=== PATIENT | female | born 1960 | race Caucasian/White ===

== ENCOUNTER 2016-10-07 07:20 | Inpatient (IN) | payer OTHER ==
[~2016-10-07] VITALS: Ht 166.4 cm; Wt 77.6 kg
[2016-10-07] VITALS (13 sets, daily range): BP systolic 95–143; BP diastolic 57–87; PULSE 61–85; RESP 10–17; O2SAT 100
--- NOTE | 2016-10-07 07:10 | ED.REPORT ---
HPI-Chest Pain 40 and Over Date of Service Oct 07, 2016 ED Provider: Irvin Abernathy DO Pt is a 56 y.o. female who presents to the ED via EMS c/o substernal chest pain that radiates to her left shoulder, rated at 8/10, that woke her up from sleep. She states that she got up and fed her dogs and took 2 baby ASA hoping the pain would resolve, when it didn't she called EMS. EMS identified a STEMI en route and administered 3 Nitro, 324mg ASA, and 6 units Morphine. Upon arrival to the ED the pt states that her chest pain has improved but has not resolved. She denies associated diaphoresis and SOB. She does state that she had a recent, normal, cardiology work-up for palpitations. She denies any current health problems, she states that after losing 100lbs her DM and HTN resolved. Nursing Notes Stated Complaint: STEMI Nursing Notes Reviewed: Yes Allergies: Coded Allergies: latex (Verified Allergy, Severe, RASH, 05/10/09) Penicillins (Verified Allergy, Unknown, ANAPHYLAXIS, 05/10/09) General Time Seen by MD: 07:27 Chief Complaint Chest pain Hx Obtained From: Patient Arrived By: Ambulance Sudden in Onset?: Yes Onset Occurred: 1 - 4 hours ago Context of Onset: Sleeping Symptom Duration: Since onset Location: : Substernal Quality: Painful Radiation: : Shoulder left Severity: Current: Moderate Severity: Maximum: Pain level 8 out of 10 Recent Healthcare: No recent doctor visit, No recent hospitalization Past Medical History Past Medical History Healthy Past Surgical History Reports: Cholecystectomy Review of Systems Respiratory: Denies: Shortness of breath Cardiovascular: Reports: Chest pain Musculoskeletal: Reports: Joint pain (Left shoulder) Skin: Denies Diaphoresis Complete sys rev & neg: except as marked. Physical Exam Initial Vital Signs Vital Signs (First) Date Time Temp Pulse Resp B/P Pulse Ox O2 Delivery O2 Flow Rate FiO2 10/07/16 07:26 36.5 63 17 133/68 100 Room Air 2 Initial VS: Reviewed Head / Eyes: Atraumatic, Normocephalic Extremities: Vascular intact, Neuro intact Skin: Warm, Dry, No cyanosis Neurologic: Alert, Oriented, Nonfocal Psychiatric: Mood/affect normal, Behavior normal, Normal thought content General/Constitutional: Awake, Alert, Well appearing, Well developed, Well hydrated, Well nourished, Not toxic appearing Distress / Hydration: Positive: Distress mild Respiratory / Chest: Atraumatic, Breath sounds NL, Breath sounds = bilat, No respiratory distress Cardiovascular: Heart rate NL, Regular rhythm, Peripheral circulation NL Abdomen: Atraumatic, Soft, No distention Interpretation & Diagnostics Lab Results Interpretation Result Diagram: 10/07/16 0734 10/07/16 0734 Test 10/07/16 07:34 White Blood Count 11.3th/mm3 (3.8-10.1) Red Blood Count 4.18mil/mm3 (3.90-5.20) Hemoglobin 13.3g/dL (12.0-15.6) Hematocrit 38.8% (35.0-46.0) Mean Corpuscular Volume 92.8fL (81-100) Mean Corpuscular Hemoglobin 31.8pg (27.0-35.0) Mean Corpuscular Hemoglobin Concent 34.3% (32.0-37.0) Red Cell Distribution Width 14.0% (12.3-15.4) Platelet Count 396bil/L (150-400) Neutrophils (%) (Auto) 38.9% (40-74) Lymphocytes (%) (Auto) 46.6% (14-46) Monocytes (%) (Auto) 10.8% (4-12) Eosinophils (%) (Auto) 3.2% (0-5) Basophils (%) (Auto) 0.3% (0-3) Sodium Level 139mEq/L (134-144) Potassium Level 3.7mEq/L (3.5-5.2) Chloride Level 102mEq/L (97-108) Carbon Dioxide Level 20mmol/L (18-29) Blood Urea Nitrogen 38mg/dL (6-24) Creatinine 0.84mg/dL (0.57-1.00) Estimat Glomerular Filtration Rate 100mL/min (>59) Glucose Level 175mg/dL (60-99) Calcium Level 9.8mg/dL (8.5-10.1) Magnesium Level 2.3mg/dL (1.6-2.6) Total Bilirubin 0.3mg/dL (0.0-1.2) Aspartate Amino Transf (AST/SGOT) 22U/L (0-50) Alanine Aminotransferase (ALT/SGPT) 17U/L (0-32) Alkaline Phosphatase 76U/L (25-150) Troponin T 0.010ug/L (0.0-0.011) Total Protein 7.6g/dL (6.4-8.4) Albumin 4.3g/dL (3.4-5.0) ECG Interpretation ECG Interpretation: Anterolateral STEMI with inferior reciprocal changes Time: 07:25 Interpreted by: ED physician Normal ECG Interpretation: Normal rate (64), Normal sinus rhythm X-Ray Chest Interpretation Chest Xray Interpretation: IMPRESSION: No acute process. Dictated by: Cammy Ackerman M.D. on 10/07/2016 at 7:42 Approved by: Cammy Ackerman M.D. on 10/07/2016 at 7:42 Re-Eval/Medical Decision Med Decision/Clinical Course Patient's medical care was initiated prior to her physical arrival to the ER, the Opera [facility] was notified and activated prior to patient arrival as well as initial contact with cardiology prior to patient arrival due to concerns by EMS for ST elevation SC. Ultimately patient is diagnosed with a STEMI. Heparin bolus and nitro drip initiated in the ER. Will be taken emergently to the Opera [facility]. Time of Eval: 07:41 Re-Evaluation/Progress Note: Pt rechecked. Dr. Browne is in the room. Family is now present. Consultation : Referral / Consult Name: Durga Browne MD Call Returned at: 07:35 Polisher And Buffer: Requested laborer wood preserving plant Note: Dr. Browne is present in ED to review EKG and see pt. He states that he does not want Plavix administered. He will admit and take pt to lab[facility] plant. Discharge & Departure Primary Impression: ST elevation myocardial infarction (STEMI) of anterolateral wall Disposition: ADMITTED TO HOSPITAL Discharge Condition All VS Reviewed: Yes Condition: Stable Referrals: Gallo Hylton MD (PCP) Crit Care Except Billable Proc Time Spent: 30-74 minutes Services Performed: Patient management by me, Time spent at bedside, Reviewing test results Critical Care Notes: See MDM Scribe Attestation Portions of this note were transcribed by Raffi Tse. I, Dr. Abernathy personally performed the history, physical exam and medical decision-making; I reviewed and confirmed the accuracy of the information in the transcribed note. Signed by: Maxine Tabares, 10/07/16 and 0755. copies to: Gallo Hylton MD, Timothy S DO Oct 07, 2016 07:10 RAFFI TSE Oct 07, 2016 07:43
[2016-10-07] MEDS ORDERED: EPTIFIBATIDE IV ONE (07:21)
[2016-10-07] MEDS ORDERED: Nitroglycerin 50,000 mcg/250 mL D5W Premix IV ONE ×2 (07:28→07:31)
[2016-10-07] MEDS ORDERED: Heparin 25,000 Unit/500 mL 0.45% NS Premix IV ONE (07:28)
[2016-10-07] MEDS ORDERED: Heparin 5,000 Unit/mL Inj ONE (07:30)
[2016-10-07] MEDS ORDERED: Heparin 1,000 Units/500 mL NS Premix IV ONE (07:31)
[2016-10-07] MEDS ORDERED: Heparin 5,000 Units/500 mL NS Premix IV ONE ×3 (07:31→09:37)
[2016-10-07] MEDS ORDERED: Heparin 1,000 Unit/mL 10 mL Inj ONE ×2 (07:32→09:13)
[2016-10-07] MEDS ORDERED: fentaNYL-PF 50 mCg/mL 2 mL Inj ONE (07:32)
[2016-10-07 07:38] LABS: BASOPHILS % (AUTO) 0.3 % (0-3); EOSINOPHILS % (AUTO) 3.2 % (0-5); MONOCYTES % (AUTO) 10.8 % (4-12); Mean Corpuscular Hemoglobin 31.8 pg (27.0-35.0); Mean Corpuscular Volume 92.8 fL (81-100); NEUTROPHILS % (AUTO) 38.9 % (40-74); Platelet Count 396 bil/L (150-400)
--- NOTE | 2016-10-07 07:43 | DRSVH ---
PROCEDURE: X-RAY CHEST ONE VIEW, PORTABLE ([id number]) INDICATIONS: CP TECHNIQUE: One view of the chest was acquired. COMPARISON: None. FINDINGS: Surgical changes and devices: None. Lungs and pleura: No pleural effusions or pneumothorax. Lungs are clear. Mediastinum: Mediastinal contours appear normal. Heart size is normal. Bones and chest wall: No suspicious bony lesions. Overlying soft tissues appear unremarkable. IMPRESSION: No acute process. Dictated by: Cammy Ackerman M.D. on 10/07/2016 at 7:42 Approved by: Cammy Ackerman M.D. on 10/07/2016 at 7:42
[2016-10-07 08:20] LABS: TROPONIN T 0.01 ug/L (0.0-0.011)
[2016-10-07 08:31] LABS: Magnesium 2.3 mg/dL (1.6-2.6)
[2016-10-07] MEDS ORDERED: Eptifibatide 20,000 mCg/10 mL Inj ONE ×2 (09:18→09:22)
[2016-10-07] MEDS ORDERED: Sodium Chloride LOK Flush 10 mL Syringe IVFLUSH PRN (11:20)
[2016-10-07] MEDS ORDERED: Atropine 1 mg/10 mL (Code) Syringe IVPUSH PRN (11:20)
[2016-10-07] MEDS ORDERED: 0.9% Sodium Chloride 250 ML BOLUS IV PRN (11:20)
[2016-10-07] MEDS ORDERED: 0.9% Sodium Chloride 400 ML (4 HRS) IV ONE (11:20)
[2016-10-07] MEDS ORDERED: Eptifibatide IV Infusion 75,000 MCG in IV Premix 1 EACH IV SCH (11:25)
[2016-10-07] MEDS ORDERED: Heparin Protocol Boluses IVPUSH PRN (11:35)
[2016-10-07] MEDS ORDERED: Heparin 25K Unit/500mL 0.45 NS 25,000 UNIT in IV Premix 1 EACH IV SCH (11:35)
[2016-10-07] MEDS ORDERED: Alum-Mag Hydrox-Simeth 30 mL Suspension PO PRN (14:05)
[2016-10-07] MEDS ORDERED: Polyethylene Glycol (PEG) 17 Gm Powder PO PRN (14:05)
--- NOTE | 2016-10-07 14:15 | PCM.HPMED ---
Subjective Date of Service Oct 07, 2016 Primary Provider: Admitting Physician: Eliazar Soliz MD Primary Care Physician: Zan Ortez MD Attending Physician: Eliazar Soliz MD Chief Complaint: Stabbing chest pain History of Present Illness: Patient is a 56 year old female with a history of HTN, HLP and DM type 2. She presented to [facility] on 10/07/16 with chest pain. She reports it awakened her from sleep at approximately 0615. She describes it as stabbing and intense pain. It radiated to her left shoulder briefly. She woke up her and had him call 911. EMS arrived by 0645 and administered aspirin and nitro. This improved her chest pain. She came to [facility] and essentially went straight to label paster. Patient recalls a return of pain during the procedure. She was told this occurred because the new stent had a blood clot in it. This clot was removed. Patient reports a weight loss of 100 pounds. She did this with diet and exercise. She sees a medical management trainer four times weekly for weight training and does cardio five times weekly. She reports eating a higher protein, lower carbohydrate diet. She was able to stop all medications for diabetes, hypertension and hyperlipidemia this way. She reports being motivated to continue these positive changes to minimize the amount of medication she takes. Initial vitals show an afebrile patient with a heart rate of 63, respiratory rate of 17, blood pressure 133/68 and O2 saturation of 100% on room air. Labs were remarkable for WBC 11.3, BUN 38, blood glucose 175. Anterolateral STEMI noted on EKG and patient sent for cardiac catheterization. Admitted to ICU post -cath for continued monitoring, new medication administration and management. Review of Systems: A comprehensive review of systems was conducted with the patient and found to be negative except as above in the history of present illness. Allergies Coded Allergies: latex (Verified Allergy, Severe, RASH, 05/10/09) Penicillins (Verified Allergy, Unknown, ANAPHYLAXIS, 05/10/09) Home Medications Patient reports taking nothing PMH Hypertension Hyperlipidemia Type 2 diabetes mellitus Surgical History Ankle surgery Cholecystectomy Uterine polyp removal Family History Father - CAD requiring stent placement about 20 years ago Mother - DM2, HTN, HLP, TIA Social History Hx Alcohol Use: Yes (drank socially in her 20s) Hx Substance Use: No Hx Tobacco Use: Yes Smoking Status: Former Smoker (Smoked socially in her 20s) Living Arrangement: with Family Exam Vital Signs Vital Sign - Last Date Time Temp Pulse Resp B/P Pulse Ox O2 Delivery O2 Flow Rate FiO2 10/07/16 12:30 70 16 95/57 10/07/16 11:20 37.0 100 Nasal Cannula 4.00 Exam Alert and oriented x3, no acute distress, laying in CCU bed Head atraumatic, normocephalic PERRLA, EOMI, sclera anicteric Mucus membranes moist, no oral thrush observed No cervical lymphadenopathy, neck supple, nontender No JVD noted Cardiac tones regular rate and rhythm with no murmur appreciated Lungs clear to auscultation bilaterally with adequate respiratory effort No abdominal tenderness, non-distended, normoactive bowel tones, soft Savage present Radial pulses normal and equivalent bilaterally, dorsalis pedis pulses normal and equivalent bilaterally No cyanosis, clubbing or edema Femoral sheath still in place in the right groin with blood oozing around it Cranial nerves appear to be fully intact, normal speech, patient can move upper and lower limbs grossly Lab and Diagnostics Result Diagram: 10/07/16 1255 10/07/16 0734 X-Rays, CTs and MRIs PROCEDURE: X-RAY CHEST ONE VIEW, PORTABLE IMPRESSION: No acute process. Dictated by: Cammy Ackerman M.D. on 10/07/2016 at 7:42 Assessment & Plan Patient is a 56 year old female with a history of HTN, HLP and DM type 2. She presented to [facility] on 10/07/16 with chest pain. Found to have anterolateral STEMI. Underwent cardiac catheterization. Admitted for continued monitoring and management. 1. Anterolateral STEMI, acute, present on admission. - Dr. Browne of cardiology performed PCI with stenting to the LAD. We appreciate his continued consultation. - Continue heparin drip per the cardiac protocol at this time. - Continue integrilin IV at this time per Dr. Browne's instructions - continue to 18 hours. - Begin metoprolol tartrate 12.5 mg BID. - Begin atorvastatin 80 mg HS. - Begin baby aspirin daily. - Begin prasugrel 10 mg daily. - SL nitro available PRN chest pain. - IV morphine available PRN chest pain. - Patient to remain NPO and on bedrest in case there is a need for additional visit to label paster. Femoral sheath remains in place at this time. - Echo ordered and pending. - Continue IV NS 100 ml/hr at this time. 2. History of hypertension, presume stable. - Patient on no current home medications as she lost 100 lbs. with diet and exercise. - Continue to monitor. 3. History of hyperlipidemia, presume stable. - Patient on no current home medications as she lost 100 lbs. with diet and exercise. 4. Type 2 diabetes mellitus, presume stable. - Patient on no current home medications as she lost 100 lbs. with diet and exercise. - Will check A1c during this admission. - Antiemetic available PRN. - Antacid available PRN. - Bowel regimen available PRN. - Tylenol available PRN mild pain, fever. Patient admitted under inpatient status with expected length of stay greater than 2 midnights for severity of present symptoms, complexities of treatment plan and risk for adverse events. PCP Zan Ortez MD VTE Prophylaxis: SCDs, Other (Heparin drip) Resuscitation Status: CPR: Attempt Resuscitation Attending Statement The patient was seen and examined together with Dr. Brar on 10/07/2016 and I agree with the history, exam and plan as outlined in the note above. . copies to: Zan Ortez MD, Jennifer E DO Oct 07, 2016 14:15 Eliazar Soliz MD Oct 07, 2016 17:32
[2016-10-07] MEDS ORDERED: DOPamine 800 mg/250 mL D5W Premix IV ONE (14:42)
[2016-10-07] MEDS: Ondansetron 2 mg/mL 2 mL Inj IVPUSH PRN ×2 (14:50→15:58)
[2016-10-07 14:57] LABS: TROPONIN T 5.38 ug/L (0.0-0.011)
[2016-10-07] MEDS ORDERED: Protamine Sulfate 10 mg/mL 5 mL Inj IVPUSH ONE (15:00)
--- NOTE | 2016-10-07 15:54 | CS94 ---
[address] [address] DIAGNOSTIC CARDIAC CATHETERIZATION PATIENT: HAKAN GARCIA : 1960 MR#: [id number] ADMIT: 10/07/2016 JOB ID: [id number] SERVICE DATE: 10/07/2016 PROCEDURE NOTE--CARDIAC CATHETERIZATION LABORATORY: DATE OF PROCEDURE: Friday, October 07, 2016. CONTROL TOWER RADIO OPERATOR: Durga Browne MD. PROCEDURES: 1. Coronary angiogram--emergent. 2. Left heart catheterization (LHC): Pressure measurement. 3. Percutaneous coronary intervention: a. Drug-eluting stent of the mid left anterior descending--Xience 2.5 x 33 mm; and Xience 2.75 x 12 mm drug-eluting stents. b. IVUS--adjunctive intravascular ultrasound. CLINICAL DETAILS: This 56-year-old woman presents to the emergency department by EMS 1-2 hours after the onset of severe retrosternal chest discomfort. ECG shows anterior ST elevation with reciprocal ST depression. Underlying coronary risk factors include strong family history of premature coronary disease; and she is said to have had hypertension, hyperlipidemia, and diabetes that were treated prior to voluntary weight loss of 100 pounds. PROCEDURAL DETAILS: I evaluated her emergently in the emergency department immediately after her arrival. I discussed the findings, impressions and management considerations, including the recommendation to proceed emergently to coronary angiogram for definitive diagnosis and to guide Treatment options including medical therapy, anticipated PCI; or coronary bypass surgery, if needed. We discussed the procedure including possible risks and complications, including with her and her . We discussed bleeding, infection, and blood clot, as well as injury to nerve, artery, vein or kidney; also arrhythmia, drug reaction; or others. We discussed treatment as needed including surgery, pacemaker, transfusion. We discussed more serious complications that are possible including stroke, heart attack, cardiac arrest, and emergency surgery including transfer for coronary bypass surgery. After questions and discussion she signed informed consent to proceed. In the emergency department, she was treated with ASA 324 mg chewed; and heparin IV bolus; and heparin IV infusion. She was brought to the catheterization laboratory where she was prepped sterilely and draped for the procedure. CORONARY ANGIOGRAM: Arterial access was obtained without difficulty in the right common femoral artery using fluoroscopic localization over the femoral head and modified Seldinger technique to insert a 10 cm, [place] side-arm sheath. A long 0.035-inch, J-tipped guidewire was used to advance and exchange catheters. For coronary angiography, the right coronary artery was 1st imaged using a [place] JR-4 diagnostic catheter. Then, the left coronary artery was imaged using a [place] JL-4 catheter. LEFT HEART CATHETERIZATION: At the end of the procedure, a 6[place] pigtail catheter was advanced across the aortic valve into the left ventricle. Pressures were measured. PCI OF MID LAD: The initial diagnostic angiograms were reviewed; the decision made to proceed with emergent revascularization of the apparent culprit subtotally occluded mid LAD lesion (PARAG-2 flow). The treatment site includes also a long, diffuse segment of diseased vessel crossing a small (1 mm) diagonal branch with an 80% tubular ostial and proximal narrowing. The [place], JL-[address] guide catheter already in [address] was used for the intervention. Procedural anticoagulation was obtained with bolus IV heparin to achieve therapeutic ACT. Dual antiplatelet therapy was begun with a loading dose of prasugrel 60 mg p.o., aliquots of NTG IC were used during the procedure. The lesion was crossed with a BMW wire--0.014 inches x 190 cm--which was placed distally in the LAD. PREDILATATION: The lesion was predilated with a Trek balloon--2.5 x 15 mm--inflated to 6 atmospheres. The lesion and flow in the artery was improved. STENT: Next, a LORENE (drug-eluting stent) Xience Alpine--2.5 x 33 mm--was inserted across the lesion and deployed at 18 atmospheres. Next, a second stent, Xience Alpine--2.75 x 12 mm, was deployed proximally overlapping the first stent to cover the entire lesion from normal to normal and deployed at 16 atmospheres. POSTDILATATION: The stented segment was postdilated with a noncompliant Trek NC balloon--2.75 x 15 mm inflated twice within the stented segment to a maximum of 20 atmospheres. There was an excellent angiographic result with no residual lesion, PARAG-3 flow, and no evident angiographic complication. The small diseased diagonal jailed by the stent did not deteriorate. The patient had become pain free. Left heart catheterization was performed. After left heart catheterization, the patient noticed recurrent chest discomfort. Angiograph: The followup angiographic pictures were obtained using the [place], JL-4 guide catheter. The small diagonal branch had deteriorated and closed; and there was a filling defect consistent with thrombus within the stent in the mid LAD. There was PARAG-3 flow in the LAD; and the chest discomfort was attributed to the closed diagonal branch. At this point, Integrilin was initiated with a double bolus protocol and infusion. The first bolus was given intracoronary through the guide catheter. The diagonal branch opened and resumed PARAG-3 flow. Her chest pain resolved. A BMW wire was reinserted across the stent; and a Trek balloon--2.75 x 15 mm--was inserted across the site of a filling defect; and inflated to 4 atmospheres twice for 1 minute each time. Thereafter, the completion angiograms showed resolution of the thrombus with no residual lesion, no evident angiographic complication, and PARAG-3 flow in the LAD, as well as in the small diagonal branch. IVUS: Intravascular ultrasound was performed using the [place] 40 megahertz [place] catheter inserted distal to the stent and recorded on pullback. The stent appeared to be intact, well apposed and well expanded with diameter 2.5-3 mm and area of 4.4-4.9 squared mm. There was no other evident abnormality noted by IVUS. Completion angiograms showed an excellent angiographic result with no residual lesion; PARAG-3 flow in the LAD as well as in the diagonal; and no evident angiographic complication. The patient was chest pain free and ST depression that had been noted resolved fully. PROCEDURE WITHOUT DIFFICULTY. Patient tolerated procedure well. No complication. A side-arm sheath angiogram showed a high bifurcation and arterial access over the femoral head but at the bifurcation of the common femoral artery. Arterial hemostasis was deferred and the sheath was sutured in place to be maintained to arterial pressure transducer and flushed until removed after plans for continuing heparin infusion. The patient was chest pain free and stable and was transferred from the catheterization laboratory to the CCU unit for ongoing care including by the primary hospitalist service. I discussed the findings, impressions and management considerations with the patient; and with her and parents who arrived; with Cardiology; and with the hospitalist team. FINDINGS: 1. LMCA: Intact. The left main coronary artery is short and has no lesions. 2. LAD: 99% tubular subtotal mid LAD lesion with PARAG 2 flow. The LAD is a moderate to large size transapical vessel. The culprit lesion is within a long segment of severe diffuse disease extending from past the first septal fruit sprayer and crossing the small (1.0 mm) 1st diagonal vessel. The diagonal has an 80% focal ostial and proximal lesion. 3. LCX: Intact. The left circumflex coronary artery distribution includes one moderate-sized distal posterolateral branch; and there are no angiographic obstructive lesions. 4. RCA: Dominant. Intact. The right coronary artery has a downward-going and somewhat anterior takeoff. There are no angiographic obstructive lesions. The PDA and RPL branches are small to medium size. 5. LHC: LVED 18 mmHg; and pullback measurement was obscured by PVCs. CONCLUSIONS: 1. PCI--LORENE of diffuse mid LAD lesion including a Xience 2.5 x 33 mm; and Xience 2.75 x 12 mm stents; post dilated to 2.75 mm. 2. ACS (acute coronary syndrome)--acute anterior myocardial infarction due to culprit subtotal mid LAD lesion with PARAG 2 flow. 3. Coronary artery disease (CAD)--single-vessel disease of mid LAD and small diagonal. RECOMMENDATIONS: 1. ECASA--indefinitely. 2. Prasugrel--plan on year if well tolerated, including ongoing Cardiology followup. I discussed with the patient, her and family regarding the critical importance of mandatory dual antiplatelet therapy and not to stop Plavix for any reason without immediate Cardiology consultation. 3. Echocardiogram. 4. OMT--guideline-directed optimal medical therapy for coronary disease including aspirin, prasugrel, statin, beta-nate and consideration of KALPESH inhibitor; as well as for underlying CAD risk factors. 5. Hydration and monitoring of urine output and hydration and monitoring to ensure good urine output after contrast. 6. Plan to maintain heparin drip and Integrilin prior to removing sheath.
[2016-10-07] MEDS: 0.9% Sodium Chloride 1,000 ML IV SCH (15:58)
--- NOTE | 2016-10-07 16:27 | CONS ---
[address] [address] CONSULTATION REPORT PATIENT: HAKAN GARCIA : 1960 MR# : [id number] ADMIT: 10/07/2016 JOB ID: [id number] CARDIOLOGY CONSULTATION NOTE--INITIAL CRITICAL CARE EVALUATION (EMERGENCY DEPARTMENT): DATE OF EVALUATION: Friday, October 07, 2016. CONSULTING PHYSICIAN: Cardiology--Durga Browne MD. PROBLEMS: 1. ACUTE CORONARY SYNDROME (ACS): a. Chest pain--Awakened by 1st ever episode of severe chest discomfort; and presenting with ischemic time 1-2 hours. b. STEMI--ECG shows anterior ST elevation with confirmatory reciprocal inferior ST depression. CAD Risk Factors: a. History of diabetes--not recently treated after 100-pound weight loss. b. Hypertension--history of hypertension; not recently treated after weight loss. c. Hyperlipidemia--history of hyperlipidemia; not recently treated after prior weight loss. d. Cigarettes--Nonsmoker. e. Family history--Strong family history of premature coronary disease. OTHER PROBLEMS: 1. Palpitations--fleeting palpitations; and history of orthostatic dizziness including one episode of syncope; and recently completed Zio patch monitor. 2. Obesity--current weight 160 pounds; after 100 pound voluntary weight loss. CHIEF COMPLAINT: 1. Chest pain. 2. STEMI. HISTORY OF PRESENT ILLNESS: PRESENTATION: I came emergently to see this 56-year-old woman immediately after she was admitted by EMS transport to the Emergency Department. She was awakened by severe retrosternal chest discomfort--she describes sharp pain radiating to the back with intensity eight on a scale to 10. Her chest discomfort has moderated somewhat after MSO4 and NTG in the emergency department. She has ongoing moderate chest discomfort--intensity 4-5. She is otherwise clinically stable including hemodynamically and rhythm. During EMS transport from home and in the emergency department, she had already received ASA 324 mg chewed; and heparin loading bolus IV; and heparin IV infusion. CARDIAC HISTORY: The patient tells me she has not had prior known heart disease with the exception she was told of a murmur in childhood. She had also just recently completed a Zio patch ambulatory telemetry because of fleeting palpitations, that are asymptomatic otherwise. She also has significant orthostatic dizziness when she stands up. Her said she had one episode of syncope in the orthostatic setting. Otherwise she is vigorously active, including working with a animal trainer on vigorous cardio workouts. She has had no premonitory symptoms; no effort limitation; and no effort-related symptoms. She has had no prior anginal symptoms and no heart failure symptoms, including no chronic dyspnea, nocturnal dyspnea, or edema. Regarding other possible underlying vascular disease, she has no history of CVA or current symptoms of TIA. No claudication. Regarding possible dual antiplatelet therapy, she reports no current bleeding symptoms, no anticipated upcoming surgery; and she says she is reliable to take mandatory medicines if needed. ALLERGIES: 1. PENICILLIN. 2. LATEX. I elicit no history of allergy to medical contrast, seafood, fish, iodine or shellfish. MEDICATIONS: 1. ASA 81 mg daily. 2. She takes no other medicines regularly. PAST MEDICAL HISTORY: Cholecystectomy (open laparotomy). She was told of a small abdominal aortic aneurysm after an ultrasound. REVIEW OF SYSTEMS: I questioned her and her in the emergent setting regarding a 13-point review of systems which is unremarkable, noncontributory, and negative except as noted including: No constitutional symptoms. No history of thyroid disorder. No history of pulmonary disorder except she notes occasional seasonal ("grass") allergies with some wheezing; but never severe episodes; except treated by albuterol intermittently; and not currently active. No history of GI disorder including indigestion, ulcer, hepatitis, jaundice. PERSONAL AND SOCIAL HISTORY: Cigarettes--nonsmoker except limited smoking in the remote past when she was young. Alcohol--The reports she uses no alcohol. Work--She is not working. Family--She lives with her and takes care of two dogs; and her parents are present later. FAMILY HISTORY: There is a strong family history of premature coronary disease in the 6th decade including her father, aunt, and others. EXAMINATION: General appearance: Pleasant woman who has a moderate chest discomfort and is worried. Vital signs: Blood pressure 119/87, with heart rate 72, regular in sinus rhythm on telemetry. Respiratory rate 18 and unlabored. SpO2 100% on nasal cannula. Afebrile. Weight approximately 160 pounds. Neurologic and mental status: No overt focal neurologic defect noted. She is alert, oriented, appropriate and conversant. HEENT : PERRL. Conjunctivae pink. Sclerae not icteric. Mouth and mucous membranes intact. Neck: Carotid upstroke intact bilaterally without bruit. Jugular venous pressure unremarkable, examined supine. No palpable thyromegaly. No palpable cervical lymphadenopathy. Lungs: Clear to auscultation bilaterally examined supine. Cardiac: No chest wall tenderness. Cardiac examination notable for distant heart sounds. Regular rhythm. S4 gallop and there is no loud murmur heard. Abdomen: Somewhat obese, but otherwise unremarkable examination without tenderness, mass, hepatosplenomegaly or bruit of abdominal aortic aneurysm. Note vertical midline scar. Extremities: No edema. Pedal pulses are intact bilaterally at the posterior tibial; and faintly at the right dorsalis pedis. DIAGNOSTIC STUDIES: ECG: I reviewed the multiple pre-hospital field tracings from EMS and the initial ED ECG which shows marked anterior ST elevation with confirmatory reciprocal inferior ST depression. There are only tiny R waves V1 through V3. CXR: Unremarkable. LABORATORY: CBC includes WBC 11,300, with hemoglobin 13.3, hematocrit 38.8, normal indices, and platelet count 396,000. Chemistry includes potassium 3.7, BUN 38, creatinine 0.84. Estimated GFR 100 with glucose 175. Magnesium 2.3 and unremarkable LFT. Initial troponin not elevated, less than 0.010. ASSESSMENT: I discussed my findings, impressions, and management considerations with the patient and her ; as well as with the emergency department staff; and later with the admitting Hospitalist Service includin. Acute coronary syndrome with STEMI: She was awakened by chest pain which is ongoing. ECG shows clear acute anterior myocardial infarction. She is clinically stable otherwise. I discussed the recommendation to proceed to emergent coronary angiogram for definitive diagnosis and to guide management options including medical therapy, anticipated PCI (percutaneous coronary intervention); and bypass surgery if needed. We discussed the procedure including possible risks and complications. We discussed stents including possible early or late stent failure; and possible need for further interventional procedures or bypass. We discussed the critical importance of mandatory dual antiplatelet therapy. RECOMMENDATIONS: 1. Cardiac catheterization and anticipated PCI--emergent. 2. Admit to the Hospitalist service. 3. Echocardiogram. 4. OMT--Guideline directed optimal medical therapy for coronary disease and for underlying CAD Risk factors. MIKEL
--- NOTE | 2016-10-07 18:00 | NUR ---
Admit / Hematoma/Bleeding: Patient was admitted to CCU room 2019. Pt A&O X3.Tele: Sinus 70s PAC reports 08/24 CP. aware. R groin site with sheath and ART line intact, old drainage was cleaned up for close monitoring of new bleeding. Bio occlusive intact. Dorsalis pedis pulses palpable. Pulses marked. Bilateral AC PIV infusing Nitro 5mcg/min, Integrilin 13mL/hr, Heparin 1000u/hr and NS 100ml/hr. Pt was assessed by Design Director and Hospitalist shortly after admit. Pt was assessed at 1230 and at about 1235 pt requested an ice chip. Bed was put in reverse trendelenburg and pt stated she was feeling light headed. Bed was put back flat and site R groin site was assessed. This RN noted large hematoma at groin site. music education adjunct professor, Design Director and Resident were all notified. Nitro, Integrilin and heparin gtts all stopped. STAT labs ordered. Pressure was held at R groin hematoma continuously for about 4hours. ECHO completed. Ultrasound was ordered to r/o retroperitoneal bleed. Design Director present during both ECHO and US. Addendum: 10/07/16 at 1817 by ELYSSA LOMELI RN Sheath/ART line removed by labor and delivery nurse RN and held pressure for about 25-30 mins. Epworth dressing and bioclusive dressing C/D/I. Dorsalis pedis pulses marked/palpable. Large amount of bruising a R groin noted and hematoma is outlined in black pen. Will continue to monitor for bleeding/hematoma.
[2016-10-07] MEDS ORDERED: [UNRECOGNIZED DRUG - OTHER] IV SCH (20:05)
[2016-10-07] MEDS ORDERED: DOPAMINE IV SCH (20:05)
[2016-10-07] MEDS ORDERED: DOPamine 800 mg/250 mL D5W 800,000 MCG in IV Premix 1 EACH IV SCH (20:25)
--- NOTE | 2016-10-07 21:30 | DRSVH ---
[facility] [address] [place] [address] Echocardiogram Report Name: HAKAN GARCIA MStudy Date: 10/07/2016 Height: 65 in Hospital Exam Location: [facility] Weight: 172 lb Gender: Female BSA: 1.9 m2 : 1960 Age: 56 yrs BP: 138/70 mm Hg Reason For Study: CAD Performed By: Crissy Harry Referring Physician: RAMSEY SNEED Interpretation Summary Normal sinus rhythm. Normal LV size; EF is 35-40% with focal wall motion abnormalities in LAD distribution as outlined below. No significant valvular abnormalities. Mild LA enlargement; otherwise normal chamber sizes. No prior study available for comparison. Procedure: A two-dimensional transthoracic echocardiogram with color flow and Doppler was performed. The study quality was technically adequate. There is no prior echocardiogram noted for this patient. The heart rate ranged between 49-59 bpm during the study. Left Ventricle: The left ventricle is grossly normal size. There is normal left ventricular wall thickness. The ejection fraction is estimated to be 35- 40%. There is distal septal, mid-anteroseptal, mid-anterior, distal anterior akinesis. There is basal anteroseptal hypokinesis; mid-inferoseptal hypokinesis, distal inferior, apical hypokinesis. All other segments show normal wall motion. Right Ventricle: The right ventricle is normal in size and function. Atria: The left atrium is mildly dilated. Right atrial size is normal. Mitral Valve: The mitral valve leaflets appear mildly thickened, but open well. There is no mitral regurgitation noted. Aortic Valve: The aortic valve opens well. The aortic valve is mildly calcified. No aortic regurgitation is present. Tricuspid Valve: The tricuspid valve leaflets are thin and pliable. There is trace tricuspid regurgitation. The right ventricular systolic pressure is estimated at 28 mmHg assuming a right atrial pressure of 3 mm Hg. Pulmonic Valve: The pulmonic valve is not well visualized. Great Vessels: The aortic root is normal size. The IVC is of normal diameter and collapses greater than 50% with a sniff. This suggests a low right atrial pressure of 3 mm Hg. Pericardium/ Pleura There is no pericardial effusion. There is no pleural effusion. MMode/2D Measurements & Calculations LA dimension: 3.9 cm RA long axis: 4.6 cm Ao root diam: 3.0 cm Aortic Jxn: 2.4 cm LA A2 area: 17.5 cm RA area: 11.3 cm LA A4 area: 20.8 cm RA vol: 23.4 ml LA length (vol): 4.8 cm RA : 12.6 ml/m2 LA vol: 64.9 ml LA vol index: 35.0 ml/m IVC diam: 1.8 cm Doppler Measurements & Calculations MV E max dagoberto MV E/A: 0.95 TR max dagoberto MV dec time : 87.5 cm/sec Med Peak E' Dagoberto : 250.1 cm/sec : 0.24 sec MV A max dagoberto TR max PG : 92.3 cm/sec E/E' med: 12.4 : 25.0 mmHg MV P1/2t: 70.5 msec Lat Peak E' Dagoberto E/E' lat: 7.2 E/e' average: 9.8 MV P1/2t max dagoberto MVA(P1/2t): 3.1 cm2 Reading Physician:09:29 PM
[2016-10-08] VITALS (9 sets, daily range): BP systolic 95–132; BP diastolic 49–70; PULSE 58–81; RESP 13–18; O2SAT 90–100
[2016-10-08] MEDS: 0.9% Sodium Chloride 1,000 ML IV SCH ×3 (02:30→17:51)
[2016-10-08 03:42] LABS: BASOPHILS % (AUTO) 0.2 % (0-3); EOSINOPHILS % (AUTO) 0.6 % (0-5); MONOCYTES % (AUTO) 11.5 % (4-12); Mean Corpuscular Hemoglobin 31.2 pg (27.0-35.0); Mean Corpuscular Volume 95.3 fL (81-100); NEUTROPHILS % (AUTO) 67.6 % (40-74); Platelet Count 302 bil/L (150-400)
[2016-10-08 04:55] LABS: TROPONIN T 6.2 ug/L (0.0-0.011)
[2016-10-08] MEDS ORDERED: FLUT9.9S16 NS (08:02)
--- NOTE | 2016-10-08 08:59 | DRSVH ---
PROCEDURE: X-RAY CHEST ONE VIEW, PORTABLE ([id number]) INDICATIONS: POST MAIL DISTRIBUTION CLERK TECHNIQUE: One view of the chest was acquired. COMPARISON: [facility], CR, XR CHEST 1VW (PORTABLE), 10/07/2016, 7:17. FINDINGS: Surgical changes and devices: Cholecystectomy clips. Lungs and pleura: No pleural effusions or pneumothorax. Lungs are clear. Mediastinum: Mediastinal contours appear normal. Heart size is normal. Bones and chest wall: No suspicious bony lesions. Overlying soft tissues appear unremarkable. IMPRESSION: No acute cardiopulmonary disease. Dictated by: Ciro Noriega [facility] Interpreted: Marissa Tellez MD on 10/08/2016 at 8:58 Transcribed by: RACQUEL on 10/08/2016 at 8:59 Approved by: Marissa Tellez MD, PhD on 10/08/2016 at 18:05
--- NOTE | 2016-10-08 11:57 | PROG NOTE ---
[address] [address] PROGRESS NOTE PATIENT: HAKAN GARCIA : 1960 MR#: [id number] ADMIT: 10/07/2016 JOB ID: [id number] DATE: 10/07/2016 SUBJECTIVE: The patient is a 56-year-old lady with a history of diabetes, hypertension, hypercholesterolemia, and prior smoking. She used to smoke in her 20s. She lost 100 pounds intentionally. The patient was in her usual state of health until yesterday morning at 6:15 a.m. when she woke up with severe chest discomfort. She presented to [facility] with acute anterolateral myocardial infarction. She underwent emergent angioplasty and stent placement by Dr. Browne with two drug-eluting stents to the left anterior descending artery. The patient reports feeling a whole lot better than yesterday. She denies chest discomfort, shortness of breath, orthopnea, PND, palpitation. PHYSICAL EXAMINATION: Temperature is 37.0. Blood pressure is 101/56. Pulse 60. Body weight is 78 kg. Head and face have normal configuration. nonicteric sclerae. Moist mucosa. Neck supple. No jugular venous distention or carotid bruits. Chest: Normal expansion. Lungs are clear to auscultation. Heart: The first and second heart sound normal. Grade 2/6 systolic ejection murmur at the left upper sternal border. Abdomen: Soft, nontender. Extremities: No clubbing, cyanosis, or edema. Large right groin hematoma. Neurologic: Grossly intact. DIAGNOSTIC DATA: Echocardiogram on October 07, 2016 showed normal left ventricular size with ejection fraction 35% to 40%. No significant valvular abnormality. Mildly dilated left atrium. Blood tests show hemoglobin 10.0, WBC 12.4, platelet 302. Sodium 145, potassium 4.2, chloride 112, bicarb 19, BUN 20, creatinine 0.74, glucose 113, cholesterol 139, triglycerides 60. HDL 59, LDL 68. CK peaked at 2,175. Troponin T peaked at 6.2. IMPRESSION: 1. Acute large anterolateral myocardial infarction. 2. Status post stent to the left anterior descending artery with two drug-eluting stents. 3. Ischemic cardiomyopathy with ejection fraction 35%-40%. 4. History of diabetes. 5. History of hypertension. 6. History of hypercholesterolemia. 7. Large right groin hematoma. PLAN: I will change her antiplatelet agent from prasugrel to clopidogrel, as this is more affordable to the patient as an outpatient. Beta-nate will be changed from metoprolol to carvedilol due to poor left ventricular ejection fraction. I will start her on a small dose of KALPESH inhibitor. MTDD
--- NOTE | 2016-10-08 12:02 | NUR ---
Pt changed to PCC status this am at approx 0800 Pt denies any CP today, she has been SR/SB this am with PVC's occ. She is in the shower at this time (order received OK to be off tele for shower). I will re check right groin site after. She has a large bruise present at right groin site, with no obvious active bleeding or hematoma present. Pt spoke with Dr. Elva real plan of care and her cardiac event. She was a little worried and upset afterwards and I have explained everything again for her and given her education booklets on heart attack, angioplasy/stents and angina. I also have given her care notes on plavix, captopril and coreg. Her has been in to visit and offers good support. Pt was advance to full heart healthy diet and IV has been saline locked. Savage catheter was removed this am. Pt complains at this time of some "fluttering" in her chest, and she was having some PVC's at the time.
--- NOTE | 2016-10-08 16:51 | PCM.PNMED ---
Subjective Date of Service Oct 08, 2016 Subjective overnight: Patient developed right inguinal hematoma at the cardiac catheterization site which required pressure to be held for approximately 4 hours for resolution. No acute events otherwise noted Today: Patient denies any chest pain or shortness of breath at this point. She continues to note pain in the right from oral catheter site. She states she has been able to urinate without issue. She feels like she will be ready to go home tomorrow given the improvement in her health today. Exam Vital Signs Vital Sign - Last Date Time Temp Pulse Resp B/P Pulse Ox O2 Delivery O2 Flow Rate FiO2 10/08/16 04:30 37.0 60 18 101/56 100 Nasal Cannula 2.00 Intake and Output 10/07/16 10/07/16 10/08/16 Cumulative From/Thru 15:00 23:00 07:00 10/07/16 07:26 - 10/08/16 05:59 Intake Total 1825 ml 1278 ml 3103 ml Output Total 1850 ml 1528 ml 3378 ml Balance -25 ml -250 ml -275 ml Intake Oral 50 ml 200 ml 250 ml IV Total 1775 ml 1078 ml 2853 ml Output Urine Total 1850 ml 1528 ml 3378 ml # Bowel Movements 0 0 Exam Gen.: Alert and oriented x3, no acute distress, laying in CCU bed Eyes: PERRLA, EOMI, sclera anicteric Head: atraumatic, normocephalic, Mucus membranes moist without central cyanosis , no oral thrush observed Neck: No cervical lymphadenopathy, neck supple, nontender, No JVD noted Cardiovascular: regular rate and rhythm with no murmur rubs or gallops appreciated Lungs: clear to auscultation bilaterally with adequate respiratory effort, no wheezing rales or rhonchi Abdomen: Normoactive bowel sounds, No abdominal tenderness to palpation, non- distended, soft : No Savage catheter in place Extremities: Notable right inguinal hematoma with pain on palpation. Radial pulses and dorsalis pedis pulses normal and equivalent bilaterally, No cyanosis , clubbing or edema Neuro: Cranial nerves appear to be fully intact, normal speech, patient can move upper and lower limbs grossly Psych: Normal mood and affect Lab and Diagnostics Result Diagram: 10/08/1621210/08/16212 X-Rays, CTs and MRIs PROCEDURE: X-RAY CHEST ONE VIEW, PORTABLE IMPRESSION: No acute process. Dictated by: Cammy Ackerman M.D. on 10/07/2016 at 7:42 Cardiac Echo Impressions Echocardiogram Report Interpretation Summary Normal sinus rhythm. Normal LV size; EF is 35-40% with focal wall motion abnormalities in LAD distribution as outlined below. No significant valvular abnormalities. Mild LA enlargement; otherwise normal chamber sizes. No prior study available for comparison. Reading Physician:09: 29 PM Assessment & Plan Patient is a 56 year old female with a history of HTN, HLP and DM type 2. She presented to [facility] on 10/07/16 with chest pain. Found to have anterolateral STEMI. Underwent cardiac catheterization. Admitted for continued monitoring and management. 1. Anterolateral ST elevation myocardial infarction, acute, present on admission. - Dr. Browne of cardiology performed PCI with stenting 2 to the LAD. We appreciate his continued consultation. - Discontinue heparin drip per the cardiac protocol at this time. - Discontinue integrilin IV at this time per Dr. Browne's instructions -Discontinue metoprolol tartrate 12.5 mg BID, begin carvedilol 3.125 mg twice a day - Begin atorvastatin 80 mg HS. - Begin baby aspirin daily. - Discontinue prasugrel 10 mg daily, begin clopidogrel 75 mg daily - SL nitro available PRN chest pain. - IV morphine available PRN chest pain. - Echo ordered showed EF of 35-40% with hypokinesis in the distribution of the LAD consistent with ischemic cardiomyopathy - discontinue IV NS 100 ml/hr as the patient is eating and drinking - Referral to cardiac rehabilitation 2. Ischemic cardiomyopathy, present on admission, acute - Echo shows EF of 35-40% - Begin carvedilol as above in 1 - Begin low dose captopril - Consider referral to CHF clinic 3. History of hypertension, presume stable. - Patient on no previous home medications as she lost 100 lbs. with diet and exercise. - Begin medications described in #2 above including carvedilol and captopril - Continue to monitor. 4. History of hyperlipidemia, presume stable. - Patient on no current home medications as she lost 100 lbs. with diet and exercise. - Atorvastatin 80 mg daily 5. Type 2 diabetes mellitus, presume stable. - Patient on no current home medications as she lost 100 lbs. with diet and exercise. - A1c ordered still pending - Antiemetic available PRN. - Antacid available PRN. - Bowel regimen available PRN. - Tylenol available PRN mild pain, fever. Disposition: Patient will likely be discharged tomorrow for cardiac rehabilitation and possible CHF clinic. No barriers to discharge at this time PCP Zan Ortez MD Pain Evaluation: Adequate Pain Control GI Prophylaxis: Not indicated VTE Prophylaxis: Sub-Q Heparin (Unfractionated), SCDs Resuscitation Status: CPR: Attempt Resuscitation Attending Statement The patient was seen and examined together with Dr. Vang on 10/08/2016 and I agree with the history, exam and plan as outlined in the note above. . Cristi Vang DO Oct 08, 2016 06:50 Eliazar Soliz MD Oct 12, 2016 08:43
--- NOTE | 2016-10-08 17:24 | NUR ---
Pt transferred to 2026 this evening Pt moved rooms, continues to be PCC status. is with pt at this time. Pt VS continue to be stable, and she denies any chest discomfort. She does say she feels "flutters in her chest" at times, and these seem to correlate with some infrequent PVC's. Pt has taken diet and fluids well today. She remains in SR/SB
--- NOTE | 2016-10-08 18:09 | NUR ---
Assumed Care Assumed care of her about 1730 after she transferred from CCU 2019 to [facility] 2026. Took report from Jennifer SARMIENTO in CCU. Care continues.
[2016-10-08] MEDS: Heparin 5,000 Unit/mL Inj SUBQ SCH (23:46)
[2016-10-09] VITALS (10 sets, daily range): BP systolic 89–122; BP diastolic 56–70; PULSE 62–78; RESP 16–18; O2SAT 97–100
--- NOTE | 2016-10-09 04:50 | NUR ---
Pain/tele/activity Denies chest pain. C/o right groin pain with activity, but has declined intervention for this. Right groin continues with large bruised area, but no oozing or increased bruising. Up to bathroom with steady gait. At one point, c/o nausea and some lightheadedness when getting up, which she attributed to HS meds, although her BP was normal at this time. Hoping for discharge later today.
[2016-10-09 06:21] LABS: BASOPHILS % (AUTO) 0.3 % (0-3); EOSINOPHILS % (AUTO) 2.2 % (0-5); MONOCYTES % (AUTO) 11.4 % (4-12); Mean Corpuscular Hemoglobin 31.7 pg (27.0-35.0); Mean Corpuscular Volume 95.6 fL (81-100); NEUTROPHILS % (AUTO) 62.6 % (40-74); Platelet Count 292 bil/L (150-400)
[2016-10-09 06:46] LABS: Magnesium 1.9 mg/dL (1.6-2.6); Phosphorus 2.9 mg/dL (2.5-4.9)
[2016-10-09] MEDS: Heparin 5,000 Unit/mL Inj SUBQ SCH ×2 (08:44→16:25)
--- NOTE | 2016-10-09 11:06 | NUR ---
Chest pain Patient stated chest pressure 3/10 substernal. Administered 2mg morphine. Vitals taken: P 72, BP 118/68, O2 100% RA. Stat EKG ordered and given to MD. Cardiology notified and came to evaluate patient. Chest pain decreased to 0/10.
--- NOTE | 2016-10-09 11:20 | NUR ---
Social Work: Screening Data: Pt is a 56 y/o female admitted for stemi. Pt's PCP is Dr Ortez, pt's insurance is [employer] [facility]. EMR reviewed. Readmit score is 0, low. No d/c planning needs anticipated at this time. 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 Assessment: Pt who is independent at baseline. Plan: Pt will d/c home via POV when medically stable. No d/c planning needs anticipated at this time. 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 KILEY Robin
--- NOTE | 2016-10-09 11:23 | PROG NOTE ---
[address] [address] PROGRESS NOTE PATIENT: HKAAN GARCIA : 1960 MR#: [id number] ADMIT: 10/07/2016 JOB ID: [id number] DATE: 10/09/2016 SUBJECTIVE: The patient is a 56-year-old lady who suffered a large anterolateral myocardial infarction two days ago. She had a stent placement to the left anterior descending artery with two drug-eluting stents. The patient was up, walked around and doing well yesterday. Today, she feels a little dizzy when she got up. After she lay back in bed, she had chest pressure that lasts for half an hour. She is aware of her own heartbeat. OBJECTIVE: Temperature is 37.1. Blood pressure is 105/65. Pulse 65. Body weight is 98 kg. Head and face have normal configuration. Anicteric sclerae. Moist mucosa. Neck supple. No jugular venous distention or carotid bruits. Chest normal expansion. Lungs are clear to auscultation. Heart: Distant heart sounds. No murmur. Abdomen is soft, nontender. Extremities: No clubbing or cyanosis. Large right groin hematoma. BLOOD TESTS: Show hemoglobin 10.1, WBC 10.6, platelets 292. Sodium 142, potassium 4.0, chloride 108, bicarb 21, BUN 17, creatinine 0.76, glucose 118. IMPRESSION: 1. Chest discomfort, noncardiac. 2. Hypotension, due to the large myocardial infarction and hypovolemia. 3. Large anterolateral myocardial infarction two days ago. 4. Status post stent to the left anterior descending artery with two drug-eluting stents. 5. Ischemic cardiomyopathy with ejection fraction 35-40%. 6. Diabetes mellitus. 7. History of hypercholesterolemia. 8. Large right groin hematoma. PLAN: The patient will continue on aspirin, Plavix, KALPESH inhibitor, beta nate, and statin. In view of hypotension, I would prefer to use short-acting beta nate and KALPESH inhibitor like carvedilol 3.125 b.i.d. and enalapril 2.5 mg b.i.d. I will encourage the patient to drink more fluids. Her medications can be withheld if her systolic blood pressure drops below 90. MTDD
--- NOTE | 2016-10-09 11:47 | PCM.PNMED ---
Subjective Date of Service Oct 09, 2016 Subjective Overnight: No acute events Today: Patient had a recurrence of chest pain in the morning. Cardiology was called to evaluate the patient and EKG changes were consistent with prior anterior lateral ST elevation myocardial infarction. Cardiology does not believe this is a new event and believes the patient would be able to go home today from a Cardiologic standpoint. The patient also suffered from some hypotension in the a.m. with systolic blood pressure into the high 80s. The patient will be kept today for adjustment of her current antihypertensive medications. Exam Vital Signs Vital Sign - Last Date Time Temp Pulse Resp B/P Pulse Ox O2 Delivery O2 Flow Rate FiO2 10/09/16 10:21 62 10/09/16 08:37 37.1 18 89/56 99 Room Air 10/08/16 08:00 2.00 Intake and Output 10/08/16 10/08/16 10/09/16 Cumulative From/Thru 15:00 23:00 07:00 10/07/16 07:26 - 10/09/16 05:50 Intake Total 1300 ml 100 ml 4503 ml Output Total 650 ml 2850 ml 6878 ml Balance 650 ml -2750 ml -2375 ml Intake Oral 800 ml 100 ml 1150 ml IV Total 500 ml 3353 ml Output Urine Total 650 ml 2850 ml 6878 ml # Voids 2 2 # Bowel Movements 1 1 Exam Gen.: Alert and oriented x3, no acute distress, laying in CCU bed Eyes: PERRLA, EOMI, sclera anicteric Head: atraumatic, normocephalic, Mucus membranes moist without central cyanosis , no oral thrush observed Neck: No cervical lymphadenopathy, neck supple, nontender, No JVD noted Cardiovascular: regular rate and rhythm with a soft systolic ejection murmur noted at the left sternal border no rubs or gallops appreciated Lungs: clear to auscultation bilaterally with adequate respiratory effort, no wheezing rales or rhonchi Abdomen: Normoactive bowel sounds, No abdominal tenderness to palpation, non- distended, soft : No Savage catheter in place Extremities: Notable right inguinal hematoma with pain on palpation. Radial pulses and dorsalis pedis pulses normal and equivalent bilaterally, No cyanosis , clubbing or edema Neuro: Cranial nerves appear to be fully intact, normal speech, patient can move upper and lower limbs grossly Psych: Normal mood and affect IVs and Medications Medications Reviewed: Medications were reviewed in detail Lab and Diagnostics Result Diagram: 10/09/16 0600 10/09/16 0600 X-Rays, CTs and MRIs PROCEDURE: X-RAY CHEST ONE VIEW, PORTABLE IMPRESSION: No acute process. Dictated by: Cammy Ackerman M.D. on 10/07/2016 at 7:42 Cardiac Echo Impressions Echocardiogram Report Interpretation Summary Normal sinus rhythm. Normal LV size; EF is 35-40% with focal wall motion abnormalities in LAD distribution as outlined below. No significant valvular abnormalities. Mild LA enlargement; otherwise normal chamber sizes. No prior study available for comparison. Reading Physician:09: 29 PM Assessment & Plan Patient is a 56 year old female with a history of HTN, HLP and DM type 2. She presented to [facility] on 10/07/16 with chest pain. Found to have anterolateral STEMI. Underwent cardiac catheterization. Admitted for continued monitoring and management. Hospital Day [address] elevation myocardial infarction, acute, present on admission. - Dr. Browne of cardiology performed PCI with stenting 2 to the LAD. We appreciate his continued consultation. - Discontinue heparin drip per the cardiac protocol at this time. - Discontinue integrilin IV at this time per Dr. Browne's instructions -Discontinue metoprolol tartrate 12.5 mg BID, begin carvedilol 3.125 mg twice a day - Begin atorvastatin 80 mg HS. - Begin baby aspirin daily. - Discontinue prasugrel 10 mg daily, begin clopidogrel 75 mg daily - SL nitro available PRN chest pain. - IV morphine available PRN chest pain. - Echo ordered showed EF of 35-40% with hypokinesis in the distribution of the LAD consistent with ischemic cardiomyopathy - discontinue IV NS 100 ml/hr as the patient is eating and drinking - Referral to cardiac rehabilitation 2. Ischemic cardiomyopathy, present on admission, acute - Echo shows EF of 35-40% - Begin carvedilol twice daily as above in 1 - Discontinue captopril and begin low dose enalapril 2.5mg twice daily - Consider referral to CHF clinic 3. History of hypertension, presume stable. - Patient on no previous home medications as she lost 100 lbs. with diet and exercise. - Begin medications described in #2 above including carvedilol and captopril - Continue to monitor. 4. History of hyperlipidemia, presume stable. - Patient on no current home medications as she lost 100 lbs. with diet and exercise. - Atorvastatin 80 mg daily 5. Type 2 diabetes mellitus, presume stable. - Patient on no current home medications as she lost 100 lbs. with diet and exercise. - A1c ordered still pending - Antiemetic available PRN. - Antacid available PRN. - Bowel regimen available PRN. - Tylenol available PRN mild pain, fever. Disposition: Patient will likely be discharged tomorrow for cardiac rehabilitation and possible CHF clinic. No barriers to discharge at this time PCP Zan Ortez MD GI Prophylaxis: Not indicated VTE Prophylaxis: Sub-Q Heparin (Unfractionated), SCDs VTE Mechanical Devices: Intermittant Pneumatic CD Resuscitation Status: CPR: Attempt Resuscitation Time spent 30 minutes Attending Statement The patient was seen and examined together with Dr. Vang on 10/09/16 and I agree with the history, exam and plan as outlined in the note above. Cristi Vang DO Oct 09, 2016 11:47 Jerrica Fontanez DO Oct 14, 2016 16:49
--- NOTE | 2016-10-09 14:28 | DRSVH ---
CORRECTED PROCEDURE NAME AND ACCESSION/PLACER NUMBER ON 10/09/16 PROCEDURE: US ABDOMEN LTD INDICATIONS: HYPOTENSION TECHNIQUE: Real-time scanning was performed of the abdominal and retroperitoneal organs, with image documentatio n. COMPARISON: None. FINDINGS: No free fluid. No evidence of right groin hematoma. IMPRESSION: No acute process. Dictated by: Cammy Ackerman M.D. on 10/07/2016 at 16:53 Approved by: Cammy Ackerman M.D. on 10/07/2016 at 16:54
--- NOTE | 2016-10-09 20:30 | NUR ---
Ambulation: RN ambulated half the max with the patient. The pt had to stop briefly secondary to mild light-headedness. Pt was able to continue and return to her room. Blood pressure was taken prior and post walk. Pt reported mild SOB with walk. No chest pain or discomfort.
[2016-10-10] VITALS: PULSE 59
[2016-10-10 00:21] VITALS: BP 100/65; PULSE 58; RESP 16; O2SAT 99
[2016-10-10] MEDS: Heparin 5,000 Unit/mL Inj SUBQ SCH ×2 (00:25→08:15)
[2016-10-10 03:28] VITALS: PULSE 63
[2016-10-10 04:16] VITALS: BP 95/58; PULSE 59; RESP 18; O2SAT 100
[2016-10-10 05:16] LABS: BASOPHILS % (AUTO) 0.3 % (0-3); EOSINOPHILS % (AUTO) 3.1 % (0-5); MONOCYTES % (AUTO) 11.3 % (4-12); Mean Corpuscular Volume 94.9 fL (81-100); NEUTROPHILS % (AUTO) 56.9 % (40-74); Platelet Count 269 bil/L (150-400)
[2016-10-10 08:30] VITALS: BP 101/62; PULSE 61; RESP 16; O2SAT 100
[2016-10-10] MEDS ORDERED: CLOP75TA28 PO (10:19)
[2016-10-10] MEDS ORDERED: LEVA15HF6 IH ×2 (10:20→10:49)
[2016-10-10] MEDS ORDERED: CARV3.122 PO (10:20)
[2016-10-10] MEDS ORDERED: ASPI81TA3 PO (10:20)
[2016-10-10] MEDS ORDERED: ATOR40TA69 PO (10:20)
[2016-10-10] MEDS ORDERED: CETI10CA PO (10:20)
[2016-10-10] MEDS ORDERED: ENAL5TAB PO (10:20)
[2016-10-10] MEDS ORDERED: MONT10TA23 PO (10:20)
[2016-10-10 10:42] VITALS: PULSE 63
--- NOTE | 2016-10-10 10:47 | PCM.DIMED ---
Cristi Vang Coreen DOLAN 10/10/16 1047: Discharge Instructions Date of Service Oct 10, 2016 Dates of Hospitalization Oct 07, 2016 at 10:55 Discharge Diagnosis Discharge Diagnosis 1. Anterolateral ST elevation myocardial infarction. 2. Ischemic cardiomyopathy 3. hypertension 4. hyperlipidemia 5. Type 2 diabetes mellitus Medication Instructions You have been placed on several new medications for your heart including: clopidogrel 75 mg daily which will need to be taken for at least 1 year Enteric-coated baby aspirin 81 mg daily which will need to be taken indefinitely Carvedilol 3.125 mg twice a day Enalapril 2.5 mg twice a day Atorvastatin 80 mg taken at night You have been given several new medications to hopefully relieve any need for your albuterol inhaler including: Montelukast 10 mg daily at night Cetirizine 10 mg daily at night You have been given 1 new inhaler, which is safer for your heart than your old albuterol inhaler, causing less cardiac effects. I would like for you to limit your use of this new inhaler for the next month given your recent cardiac event. If you require use of this inhaler especially more than once a day should call your PCP and be evaluated by medical professional. Levalbuterol 1 puff inhaled as needed for shortness of breath. Test Results Echocardiogram Report Interpretation Summary Normal sinus rhythm. Normal LV size; EF is 35-40% with focal wall motion abnormalities in LAD distribution as outlined below. No significant valvular abnormalities. Mild LA enlargement; otherwise normal chamber sizes. No prior study available for comparison. Reading Physician:09: 29 PM DIAGNOSTIC CARDIAC CATHETERIZATION FINDINGS: CONCLUSIONS: 1. PCI--LORENE (percutaneous intervention with drug eluding stents) of diffuse mid LAD lesion including a Xience 2.5 x 33 mm;and Xience 2.75 x 12 mm stents; post dilated to 2.75 mm. 2. ACS (acute coronary syndrome)--acute anterior myocardial infarction due to culprit subtotal mid LAD lesion with PARAG 2 flow. 3. Coronary artery disease (CAD)--single-vessel disease of mid LAD and small diagonal. RECOMMENDATIONS: 1. ECASA (enteric coated baby aspirin)--indefinitely. 2. Clopidogrel--plan on year if well tolerated, including ongoing Cardiology followup. I discussed with the patient, her and family regarding the critical importance of mandatory dual antiplatelet therapy and not to stop Plavix for any reason without immediate Cardiology consultation. Durga Browne MD 10/07/16 1148 Diet Low fat, Low Sodium, Heart Healthy, Diabetic Activity Limited until seen by PCP, Other (Limited until seen by cardiac rehabilitation team) Call your provider Fever or Chills, Shortness of breath (requiring use of your new levalbuterol inhailer more than once in a day), Bleeding, Chest pain, Vomitting, Other (low blood pressure with Systolic (top number) regularly below 100) Patient Instructions Please take all your medications as directed above. If you require use of your new levalbuterol inhaler given your recent cardiac event please consider being evaluated in the emergency room or call her primary care provider and be evaluated immediately. Please limit your activity and try not to over exert yourself until seen by your cardiac rehabilitation facility and her supervisor fish [employer]cher[employer]. Please take your home blood pressure meter with due to your first PCP appointment so that you may check your blood pressure meter reading against your primary care providers blood pressure measurement. If this measurement is off by more than 5 points please consider purchasing a new home blood pressure meter. Please monitor your blood pressure at home several times a day for the next several weeks. If your blood pressure at home is low with systolic (top number ) less than 100 do not take your next dose of enalapril. Follow-up plan Follow-up appointments have already been scheduled with her primary care physician, please make sure to be seen to discuss your recent hospitalization and new medications. A copy of your hospital records will be sent to their office. Please call and schedule an appointment with your supervisor fish [employer] at [facility] with either Dr. Alonso or Dr. Johnston or Dr. Mcnally to be seen within the next week to 2 weeks. Please call and schedule an appointment with your cardiac rehabilitation facility. Follow-up Provider: Zan Ortez MD Follow-up with PCP in: 1 week Provider: Coco Aolnso MD Follow-up in: 1 week Cardiac Rehab: 1 week CHF Clinic: 1 week Jerrica Fontanez DO 10/10/16 1317: Discharge Instructions Patient Instructions Follow-up plan Dr. Ronald Crafter Attending's Statement The patient was seen and examined together with Dr. Vang on 10/10/16 and I have added additional information to the note above. Cristi Vang DO Oct 10, 2016 10:47 Jerrica Fontanez DO Oct 10, 2016 13:17
--- NOTE | 2016-10-10 12:58 | NUR ---
Discharge Pt and were educated on condition, new medications, and questions they had. Pt demonstrated understanding of teaching and were able to repeat back what they learned. Both peripheral IVs were removed. Telemetry was removed. Pt left the facility around 1300 with by her side and staff member escorting.
--- NOTE | 2016-10-10 18:44 | PCM.DC.MED ---
Discharge Summary Date of Service Oct 10, 2016 Dates of Hospitalization Date of Hospital Admission Oct 07, 2016 at 10:55 Date of Discharge: Oct 10, 2016 Providers: Admitting Physician: Eliazar Soliz MD Primary Care Physician: Zan Ortez MD Attending Physician: Eliazar Soliz MD Diagnosis at Time of Discharge Diagnosis at Time of Discharge 1. Anterolateral ST elevation myocardial infarction. 2. Ischemic cardiomyopathy 3. hypertension 4. hyperlipidemia 5. Type 2 diabetes mellitus Consultations cardiology Procedures XRay, CTs & MRIs PROCEDURE: X-RAY CHEST ONE VIEW, PORTABLE IMPRESSION: No acute process. Dictated by: Cammy Ackerman M.D. on 10/07/2016 at 7:42 Cardiac Echo Impression Echocardiogram Report Interpretation Summary Normal sinus rhythm. Normal LV size; EF is 35-40% with focal wall motion abnormalities in LAD distribution as outlined below. No significant valvular abnormalities. Mild LA enlargement; otherwise normal chamber sizes. No prior study available for comparison. Reading Physician:09: 29 PM Invasive Procedures DIAGNOSTIC CARDIAC CATHETERIZATION CONCLUSIONS: 1. PCI--LORENE of diffuse mid LAD lesion including a Xience 2.5 x 33 mm; and Xience 2.75 x 12 mm stents; post dilated to 2.75 mm. 2. ACS (acute coronary syndrome)--acute anterior myocardial infarction due to culprit subtotal mid LAD lesion with PARAG 2 flow. 3. Coronary artery disease (CAD)--single-vessel disease of mid LAD and small diagonal. RECOMMENDATIONS: 1. ECASA--indefinitely. 2. Prasugrel--plan on year if well tolerated, including ongoing Cardiology followup. I discussed with the patient, her and family regarding the critical importance of mandatory dual antiplatelet therapy and not to stop Plavix for any reason without immediate Cardiology consultation. 3. Echocardiogram. 4. OMT--guideline-directed optimal medical therapy for coronary disease including aspirin, prasugrel, statin, beta-nate and consideration of KALPESH inhibitor; as well as for underlying CAD risk factors. 5. Hydration and monitoring of urine output and hydration and monitoring to ensure good urine output after contrast. 6. Plan to maintain heparin drip and Integrilin prior to removing sheath. Durga Browne MD 10/07/16 0180 Brief History from the H&P of by Yocasta E Brar DO "Patient is a 56 year old female with a history of HTN, HLP and DM type 2. She presented to [facility] on 10/07/16 with chest pain. She reports it awakened her from sleep at approximately 0615. She describes it as stabbing and intense pain. It radiated to her left shoulder briefly. She woke up her and had him call 911. EMS arrived by 0645 and administered aspirin and nitro. This improved her chest pain. She came to [facility] and essentially went straight to central lab technician. Patient recalls a return of pain during the procedure. She was told this occurred because the new stent had a blood clot in it. This clot was removed. Patient reports a weight loss of 100 pounds. She did this with diet and exercise. She sees a bilingual trainer four times weekly for weight training and does cardio five times weekly. She reports eating a higher protein, lower carbohydrate diet. She was able to stop all medications for diabetes, hypertension and hyperlipidemia this way. She reports being motivated to continue these positive changes to minimize the amount of medication she takes. Initial vitals show an afebrile patient with a heart rate of 63, respiratory rate of 17, blood pressure 133/68 and O2 saturation of 100% on room air. Labs were remarkable for WBC 11.3, BUN 38, blood glucose 175. Anterolateral STEMI noted on EKG and patient sent for cardiac catheterization. Admitted to ICU post -cath for continued monitoring, new medication administration and management." Hospital Course Patient was admitted and treated for a STEMI. Patient had a cardiac cath with 2 stents to the LAD. Patient's blood pressure remained labile while in the hospital and we are able to stabilize it with 3.125 mg of carvedilol twice a day. Patient has been encouraged to follow up with her PCP for further evaluation of her blood pressure. Patient had an echo which showed an EF of 35- 40%. Patient should continue taking it carvedilol twice a day, atorvastatin 80 mg daily at bedtime, clopidogrel 75 mg daily, baby aspirin daily. 1. Anterolateral ST elevation myocardial infarction, acute, present on admission. - Dr. Browne of cardiology performed PCI with stenting 2 to the LAD. We appreciate his continued consultation. - carvedilol 3.125 mg twice a day - atorvastatin 80 mg HS. - baby aspirin daily. - clopidogrel 75 mg daily - Echo ordered showed EF of 35-40% with hypokinesis in the distribution of the LAD consistent with ischemic cardiomyopathy - Referral to cardiac rehabilitation 2. Ischemic cardiomyopathy, present on admission, acute - Echo shows EF of 35-40% - Begin carvedilol twice daily as above in 1 - low dose enalapril 2.5mg twice daily - Consider referral to CHF clinic 3. History of hypertension, presume stable. - Patient on no previous home medications as she lost 100 lbs. with diet and exercise. - Begin medications described in #2 above including carvedilol and captopril - Continue to monitor. 4. History of hyperlipidemia, presume stable. - Patient on no current home medications as she lost 100 lbs. with diet and exercise. - Atorvastatin 80 mg daily 5. History of Type 2 diabetes mellitus, resolved - Patient on no current home medications as she lost 100 lbs. with diet and exercise. - A1c 5.7 Exam Vital Signs (Last) Date Time Temp Pulse Resp B/P Pulse Ox O2 Delivery O2 Flow Rate FiO2 10/10/16 10:42 63 10/10/16 08:30 36.8 16 101/62 100 Room Air 10/08/16 08:00 2.00 Exam Gen.: Alert and oriented x3, no acute distress, laying in CCU bed Eyes: PERRLA, EOMI, sclera anicteric Head: atraumatic, normocephalic, Mucus membranes moist without central cyanosis , no oral thrush observed Neck: No cervical lymphadenopathy, neck supple, nontender, No JVD noted Cardiovascular: regular rate and rhythm with a soft systolic ejection murmur noted at the left sternal border no rubs or gallops appreciated Lungs: clear to auscultation bilaterally with adequate respiratory effort, no wheezing rales or rhonchi Abdomen: Normoactive bowel sounds, No abdominal tenderness to palpation, non- distended, soft : No Savage catheter in place Extremities: Notable right inguinal hematoma with pain on palpation. Radial pulses and dorsalis pedis pulses normal and equivalent bilaterally, No cyanosis , clubbing or edema Neuro: Cranial nerves appear to be fully intact, normal speech, patient can move upper and lower limbs grossly Psych: Normal mood and affect Test 10/07/16 12:55 10/08/16 02:13 10/09/16 06:00 10/10/16 04:45 Hemoglobin A1c 5.7% (4.8-5.6) Activated Partial Thromboplast Time 22.6sec (22.8-33.0) Total Creatine Kinase 1326U/L (21-215) Creatine Kinase MB 88.4ng/mL (0.0-5.3) Creatine Kinase MB % 6.7% (0.0-5.0) Troponin T 6.20ug/L (0.0-0.011) Triglycerides Level 60mg/dL (0-149) Cholesterol Level 139mg/dL (100-199) LDL Cholesterol, Calculated 68.000mg/dL (0-99) VLDL Cholesterol 12.000mg/dL HDL Cholesterol 59mg/dL (>39) Cholesterol/HDL Ratio 2.36 (0.0-4.4) Thyroid Stimulating Hormone (TSH) 2.420uIU/mL (0.450-4.500) Free Thyroxine 1.07ng/dL (0.82-1.77) Sodium Level 142mEq/L (134-144) Potassium Level 4.0mEq/L (3.5-5.2) Chloride Level 108mEq/L (97-108) Carbon Dioxide Level 21mmol/L (18-29) Blood Urea Nitrogen 17mg/dL (6-24) Creatinine 0.76mg/dL (0.57-1.00) Estimat Glomerular Filtration Rate 113mL/min (>59) Glucose Level 118mg/dL (60-99) Calcium Level 9.2mg/dL (8.5-10.1) Phosphorus Level 2.9mg/dL (2.5-4.9) Magnesium Level 1.9mg/dL (1.6-2.6) Total Bilirubin 0.5mg/dL (0.0-1.2) Aspartate Amino Transf (AST/SGOT) 96U/L (0-50) Alanine Aminotransferase (ALT/SGPT) 32U/L (0-32) Alkaline Phosphatase 62U/L (25-150) Total Protein 6.5g/dL (6.4-8.4) Albumin 3.7g/dL (3.4-5.0) White Blood Count 10.8th/mm3 (3.8-10.1) Red Blood Count 2.97mil/mm3 (3.90-5.20) Hemoglobin 9.2g/dL (12.0-15.6) Hematocrit 28.2% (35.0-46.0) Mean Corpuscular Volume 94.9fL (81-100) Mean Corpuscular Hemoglobin 31.0pg (27.0-35.0) Mean Corpuscular Hemoglobin Concent 32.6% (32.0-37.0) Red Cell Distribution Width 14.4% (12.3-15.4) Platelet Count 269bil/L (150-400) Neutrophils (%) (Auto) 56.9% (40-74) Lymphocytes (%) (Auto) 27.9% (14-46) Monocytes (%) (Auto) 11.3% (4-12) Eosinophils (%) (Auto) 3.1% (0-5) Basophils (%) (Auto) 0.3% (0-3) Discharge Medications Discharge Medications Aspirin Chew (Aspirin Chew) 81 Mg Chew 81 MG PO DAILY Prescribed by: ERNIE VANG DO Atorvastatin Calcium (Atorvastatin Calcium) 40 Mg Tablet 80 MG PO HS Prescribed by: ERNIE VANG DO Carvedilol (Carvedilol) 3.125 Mg Tablet 3.125 MG PO BID Prescribed by: ERNIE VANG DO Cetirizine HCl (Zyrtec) 10 Mg Capsule 10 MG PO HS Prescribed by: ERNIE VANG DO Clopidogrel (Clopidogrel) 75 Mg Tablet 75 MG PO DAILY Prescribed by: ERNIE VANG DO Enalapril Maleate (Enalapril Maleate) 5 Mg Tablet 2.5 MG PO BID Prescribed by: ERNIE VANG DO Fluticasone Furoate (Flonase Sensimist) 27.5 Mcg/Actuation Apison.susp 9.9 ML NS DAILY (Reported) Montelukast (Montelukast) 10 Mg Tablet 10 MG PO HS Prescribed by: ERNIE VANG DO As needed Levalbuterol Tartrate (Levalbuterol Tartrate Hfa) 45 Mcg/Actuation Hfa.aer.ad 15 GM IH DAILY PRN PRN For Shortness of Breath Prescribed by: ERNIE VANG DO Additional med instructions You have been placed on several new medications for your heart including: clopidogrel 75 mg daily which will need to be taken for at least 1 year Enteric-coated baby aspirin 81 mg daily which will need to be taken indefinitely Carvedilol 3.125 mg twice a day Enalapril 2.5 mg twice a day Atorvastatin 80 mg taken at night You have been given several new medications to hopefully relieve any need for your albuterol inhaler including: Montelukast 10 mg daily at night Cetirizine 10 mg daily at night You have been given 1 new inhaler, which is safer for your heart than your old albuterol inhaler, causing less cardiac effects. I would like for you to limit your use of this new inhaler for the next month given your recent cardiac event. If you require use of this inhaler especially more than once a day should call your PCP and be evaluated by medical professional. Levalbuterol 1 puff inhaled as needed for shortness of breath. Followup Plan Disposition: Home Follow-up plan Follow-up with CHF clinic and cardiac rehabilitation within the next week. Please follow-up with your primary care provider within one week. Please follow up with an [facility] cardiology clinic provider of your choosing either Dr. Alonso or Dr. Johnston or Dr. Cardenas in 1-2 weeks. Discharge Diet: Low fat, Low Sodium, Heart Healthy, Diabetic Discharge Activity: Limited until seen by PCP, Other (Limited until seen by cardiac rehabilitation team) Patient Instructions Please take all your medications as directed above. If you require use of your new levalbuterol inhaler given your recent cardiac event please consider being evaluated in the emergency room or call her primary care provider and be evaluated immediately. Please limit your activity and try not to over exert yourself until seen by your cardiac rehabilitation facility and her controls project engineer. Please take your home blood pressure meter with due to your first PCP appointment so that you may check your blood pressure meter reading against your primary care providers blood pressure measurement. If this measurement is off by more than 5 points please consider purchasing a new home blood pressure meter. Please monitor your blood pressure at home several times a day for the next several weeks. If your blood pressure at home is low with systolic (top number ) less than 100 do not take your next dose of enalapril. Follow-up Provider: Zan Ortez MD Follow-up with PCP in: 1 week Provider: Coco Alonso MD Follow-up in: 1 week Cardiac Rehab: 1 week CHF Clinic: 1 week Time spent greater than 35 minutes Attending Statement The patient was seen and examined together with Dr. Vang on 10/10/16 and I have added additional information to the note above. copies to: Zan Ortez MD, Nicholas K DO Oct 10, 2016 18:43 Jerrica Fontanez DO Oct 13, 2016 13:52
== END 2016-10-10 13:25 | disposition home or self-care (01) | DRG 247 ==
LOC: SED 07:20 → CCU 10:55 → PCC 10-08 08:35
PROVIDERS: ADMIT Internal Medicine; ATTEND Internal Medicine
PROC: 027035Z Dilation of Coronary Artery, One Artery with Two Drug-eluting Intraluminal Devices, Percutaneous Approach (ICD-10-PCS; principal; 2016-10-07)
PROC: 4A023N7 Measurement of Cardiac Sampling and Pressure, Left Heart, Percutaneous Approach (ICD-10-PCS; 2016-10-07)
PROC: B2111ZZ Fluoroscopy of Multiple Coronary Arteries using Low Osmolar Contrast (ICD-10-PCS; 2016-10-07)
PROC: 3E033PZ Introduction of Platelet Inhibitor into Peripheral Vein, Percutaneous Approach (ICD-10-PCS; 2016-10-07)
PROC: B240ZZ3 Ultrasonography of Single Coronary Artery, Intravascular (ICD-10-PCS; 2016-10-07)
DX: I21.09 ST elevation (STEMI) myocardial infarction involving other coronary artery of anterior wall (principal); I97.630 Postprocedural hematoma of a circulatory system organ or structure following a cardiac catheterization; I25.10 Atherosclerotic heart disease of native coronary artery without angina pectoris; I25.5 Ischemic cardiomyopathy; Z87.891 Personal history of nicotine dependence; Z82.49 Family history of ischemic heart disease and other diseases of the circulatory system; Z79.82 Long term (current) use of aspirin; I95.89 Other hypotension; I10 Essential (primary) hypertension; E78.5 Hyperlipidemia, unspecified